=== PATIENT | female | born 1980 | race Caucasian/White ===

== ENCOUNTER 2017-06-04 21:19 | Emergency (ER) | payer MEDICAID | END 2017-06-04 22:48 | disposition home or self-care (01) | LOC: D.ER 21:19 | DX: L03.116 Cellulitis of left lower limb (principal); F17.200 Nicotine dependence, unspecified, uncomplicated ==

== ENCOUNTER 2018-04-24 00:23 | Emergency (ER) | payer MEDICAID ==
[~2018-04-24] VITALS: Ht 162.6 cm; Wt 66.4 kg
[2018-04-24 00:34] VITALS: Ht 162.6 cm; Wt 66.4 kg
[2018-04-24] MEDS ORDERED: THORAZINE10 MG (00:36)
[2018-04-24] MEDS ORDERED: CYMBALTA20 MG (00:36)
[2018-04-24] MEDS ORDERED: PROZAC10 MG (00:36)
[2018-04-24] MEDS ORDERED: DESERYL100 MG (00:36)
[2018-04-24] MEDS ORDERED: BACTRIM DS TABL1 TAB PO (03:36)
[2018-04-24] MEDS ORDERED: NORCO 7.5/325 T1 TA1 PO (03:36)
[2018-04-24 04:10] VITALS: BP 137/100
== END 2018-04-24 04:10 | disposition home or self-care (01) ==
LOC: D.ER 00:23
DX: L02.415 Cutaneous abscess of right lower limb (principal); F17.200 Nicotine dependence, unspecified, uncomplicated

== ENCOUNTER 2018-04-26 00:38 | Emergency (ER) | payer MEDICAID ==
[~2018-04-26] VITALS: Ht 162.6 cm; Wt 63.6 kg
[~2018-04-26 00:38] MED LIST: BACTRIM DS TABL1 TAB PO; CYMBALTA20 MG; DESERYL100 MG; NORCO 7.5/325 T1 TA1 PO; PROZAC10 MG; THORAZINE10 MG
[2018-04-26 00:44] VITALS: Ht 162.6 cm; Wt 63.6 kg
[2018-04-26] MEDS ORDERED: CLEOCIN HCL300 MG PO ×2 (01:39→01:41)
[2018-04-26 01:59] VITALS: BP 125/65
== END 2018-04-26 02:00 | disposition home or self-care (01) ==
LOC: D.ER 00:38
DX: L02.415 Cutaneous abscess of right lower limb (principal); F17.200 Nicotine dependence, unspecified, uncomplicated

== ENCOUNTER 2018-04-28 15:04 | Emergency (ER) | payer MEDICAID ==
[~2018-04-28] VITALS: Ht 162.6 cm; Wt 65.5 kg
[~2018-04-28 15:04] MED LIST changes: +CLEOCIN HCL300 MG PO
[2018-04-28 15:13] VITALS: Ht 162.6 cm; Wt 65.5 kg
[2018-04-28] MEDS ORDERED: HYDROCODONE-APA1 TAB PO (15:41)
[2018-04-28 15:47] VITALS: BP 119/54
== END 2018-04-28 15:48 | disposition home or self-care (01) ==
LOC: D.ER 15:04
DX: L02.415 Cutaneous abscess of right lower limb (principal); F17.200 Nicotine dependence, unspecified, uncomplicated

== ENCOUNTER 2019-07-08 22:22 | Emergency (ER) | payer OTHER ==
[~2019-07-08] VITALS: Ht 162.6 cm; Wt 66.8 kg
[~2019-07-08 22:22] MED LIST changes: +HYDROCODONE-APA1 TAB PO
[2019-07-08 22:26] VITALS: Ht 162.6 cm; Wt 66.8 kg
[2019-07-08 23:14] LABS: BASOPHILS 0.3 % (0-2); EOSINOPHILS 5.4 % (0-7); HEMATOCRIT 39.5 % (36.0-48.0); HEMOGLOBIN 13.1 g/dL (12-16); IMMATURE GRANULOCYTES 0.1 % (0-5); LYMPHOCYTES 21.1 % (15-50); MCH 29.6 pg (26.0-34.0); MCHC 33.2 g/dL (31.0-37.0); MCV 89.2 fL (80.0-100.0); MEAN PLATELET VOLUME 9.3 fL (7.4-10.4); MONOCYTES 11.1 % (2-11); PLATELET COUNT 322 10x3/uL (130-400); RBC 4.43 10x6/uL (4.00-5.40); RDW 13.1 % (11.5-14.5); WBC 7.2 10x3/uL (4.8-10.8)
[2019-07-08 23:23] LABS: CALC OSMOLALITY 270 mosm/kg (275-300); CALCIUM 8.5 mg/dL (8.5-10.1); CARBON DIOXIDE 28.1 mmol/L (21.0-32.0); CHLORIDE - SERUM 102 mmol/L (98-107); CREATININE - SERUM 0.8 mg/dL (0.6-1.3); GLUCOSE 101 mg/dL (74-106); POTASSIUM - SERUM 3.9 mmol/L (3.5-5.1); SODIUM 136 mmol/L (136-145); UREA NITROGEN 9 mg/dL (7-18); eGFR NON AFRICAN AMERICAN 85 mL/min (90-120)
[2019-07-08 23:24] LABS: INR 1.01 (0.85-1.17); PROTIME 12.9 SECONDS (11.6-15.0)
[2019-07-08 23:29] LABS: ALBUMIN 3.3 g/dL (3.4-5.0); ALKALINE PHOSPHATASE 73 U/L (46-116); ALT (SGPT) 26 U/L (10-68); BILIRUBIN - TOTAL 0.73 mg/dL (0.2-1.3); PROTEIN - SERUM 7.7 g/dL (6.4-8.2)
[2019-07-09] MEDS ORDERED: LOMOTIL 2.5-0.1 EAC1 PO (01:49)
[2019-07-09] MEDS ORDERED: ZOFRAN ODT4 MG/UDTAB PO (01:49)
[2019-07-09] MEDS ORDERED: FLAGYL500 MG PO (01:49)
[2019-07-09 02:04] VITALS: BP 120/85
== END 2019-07-09 02:05 | disposition home or self-care (01) ==
LOC: D.ER 22:22
PROVIDERS: Family Medicine
DX: K52.9 Noninfective gastroenteritis and colitis, unspecified (principal); R11.2 Nausea with vomiting, unspecified